=== PATIENT | female | born 1960 | race Caucasian/White ===

== ENCOUNTER 2018-02-03 00:40 | Inpatient (IN) | payer OTHER ==
[~2018-02-03] VITALS: Ht 165.1 cm; Wt 49.0 kg
--- NOTE | ~2018-02-03 | PR ---
[place], [place] PROGRESS NOTE NAME: ALVIN HERNANDEZ UNIT #: [id number] ROOM: 314 DOCTOR: PATRIA CORDERO DO BIRTHDATE: [birth year] DOS: 02/10/2018 CHIEF COMPLAINT: "I feel better." SUMMARY OF VISIT: The patient was seated in the dining area for the interview today. She smiled during our interaction this morning. She reports that her constipation is much less and that the Colace is working. MENTAL STATUS EXAMINATION: The patient is alert and oriented to person, place and time today. Her mood is improved, continuing toward euthymia. Her affect is appropriate today. The patient continues to eat a limited diet. There is suspicion that an eating disorder may be present. PLAN: We will renew Ativan and p.r.n. status. Continue with the current medication regimen, working toward discharge sometime next week with continued improvement. Continue to engage in individual and brown milieu activities and returning her to the least restrictive environment when psychiatrically stable. Patria Cordero DO ARGENIS BONE MD CM:PNTRANS [id number] PATRIA CORDERO DO 02/11/18 0035 interface
--- NOTE | ~2018-02-03 | WRIGHTHP ---
[place], [place] PATIENT HISTORY AND PHYSICAL EXAM NAME: ALVIN HERNANDEZ UNIT #: [id number] ROOM: 314 DOCTOR: ARGENIS BONE MD BIRTHDATE: [birth year] DOS: 02/03/2018 INITIAL PSYCHIATRIC EVALUATION. CHIEF COMPLAINT: "I'm just so depressed, I need help." HISTORY OF PRESENT ILLNESS: This is a 57-year-old white female who was sent here on an involuntary basis from [facility]. The patient had initially presented to , also known as [facility] with a chief complaint of feeling so depressed, she wanted to put a gun to her head and blow her brains out. The patient reports ongoing depressive symptoms for the last 3 weeks. 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 The patient apparently carries a diagnosis of schizoaffective disorder and the notes indicate at one point, she was on Invega. She is admitted now to rule out organic factors and to attempt to stabilize on medication, returning to the least restrictive environment when psychiatrically stable. PAST MEDICAL HISTORY: Remarkable for history of head injury, hyperlipidemia, irritable bowel syndrome, migraine headaches, sinus bradycardia, trigeminal neuralgia syndrome and a questionable history of schizophrenia. SOCIAL HISTORY: She does not smoke cigarettes, use illicit drugs or drink alcohol. ALLERGIES: She lists allergies to CARBAMAZEPINE and IBUPROFEN. STRENGTHS: Good verbal skills, willingness to receive help. WEAKNESSES: Poor coping skills and a poor support system. MENTAL STATUS: She is alert and oriented to person, place and time. She is somewhat of a bad historian and somewhat spotty at times. Mood does seem to be overwhelmingly depressed and her eyes swelled with tears. She did endorse multiple neurovegetative symptoms including fleeting suicidal thoughts. There is no binta or hypomania. I did not see the presence of any psychotic symptomatology. There were no overt auditory or visual hallucinations. No delusions, no paranoia. Short, intermediate, and long-term memory were fully intact. DIAGNOSIS: Major depression, recurrent, with psychotic features, rule out schizoaffective disorder. PLAN: I have already discontinued her Invega and melatonin in lieu of Remeron 15 mg at bedtime. We will monitor for the presence and absence of both depression as well as psychotic symptoms, engage in individual and brown milieu activity, returning to the least restrictive environment when psychiatrically stable. [place], [place] PATIENT HISTORY AND PHYSICAL EXAM NAME: ALVIN HERNANDEZ UNIT #: [id number] ROOM: [facility] DOCTOR: ARGENIS BONE MD BIRTHDATE: [birth year] ARGENIS BONE MD CM:HISPHYS:PATIENT HISTORY AND PHYSICAL EXAMINATION [phone] ARGENIS BONE MD 02/03/18 0919 interface
--- NOTE | ~2018-02-03 | DS ---
[place], [place] DISCHARGE SUMMARY NAME: [id number] UNIT #: [id number] ROOM: 314 DOCTOR: ARGENIS BONE MD BIRTHDATE: [birth year] DOS: 02/14/2018 CHIEF COMPLAINT: "I'm just so depressed, I need help." HISTORY OF PRESENT ILLNESS: This is a 57-year-old white female who was sent here on an involuntary basis from [facility]. The patient had initially presented to the Emergency Room, sent there from [facility] with a chief complaint of being so depressed that she wanted to put a gun to her head and blow her brains out. She reports ongoing depressive symptoms for the last 3 weeks. During this period of time, she endorsed poor sleep and appetite. She notes difficulty falling asleep, maintaining sleep and waking up early. She has had a significant weight loss with a poor appetite. She also has been having poor ADL maintenance with anergia, anhedonia, hopeless, helpless feelings, crying spells, and inability to cope. The patient most recently was on Invega, but it has not been effective. She carries a lengthy history of schizoaffective disorder. PAST MEDICAL HISTORY: Remarkable for head injury, hyperlipidemia, irritable bowel syndrome, migraine headaches, sinus bradycardia, trigeminal neuralgia and a history of schizoaffective disorder. SOCIAL HISTORY: She does not smoke cigarettes, use illicit drugs or drink alcohol. ALLERGIES: She lists allergies to CARBAMAZEPINE and IBUPROFEN. SUMMARY OF HOSPITAL COURSE: The patient was admitted to the unit where her Invega and melatonin were discontinued in lieu of Remeron 15 mg at bedtime. This did seem to help with depression somewhat, but she continued to complain of significant sleep and appetite issues. Zyprexa was initially added at 2.5 in the morning and 5 mg at night, but she found the 2.5 mg dose in the morning too sedative and caused her too much somnolence. Eventually, the morning dose of the Zyprexa was discontinued and she was maintained just on the Remeron and the Zyprexa at bedtime. This did improve her overall symptoms. She slept well, ate better. She became very bright and pleasant and engaging. She voiced positive plans for the future and was able to be discharged home on 02/14/2018. MENTAL STATUS AT DISCHARGE: She is alert and oriented. Mood does seem to be strongly trending towards euthymia. Affect is more appropriate. There is no binta, hypomania or psychosis. Short, intermediate, and long-term memory are intact. FINAL DIAGNOSES: Schizoaffective disorder. PLAN: All of her prescriptions have been printed. There are no acute medical issues confronting her as well as no acute psychiatric issues. Her biopsychosocial needs were adequately being met by the community at large. [place], [place] DISCHARGE SUMMARY NAME: ALVIN HERNANDEZ UNIT #: [id number] ROOM: [facility] DOCTOR: ARGENIS BONE MD BIRTHDATE: [birth year] ARGENIS BONE MD CM:DISCHARG [id number] ARGENIS BONE MD 02/14/18 2035 interface
--- NOTE | ~2018-02-03 | PR ---
[place], [place] PROGRESS NOTE NAME: ALVIN HERNANDEZ UNIT #: [id number] ROOM: 314 DOCTOR: SMILEY CARCAMO MD BIRTHDATE: [birth year] DOS: 02/13/2018 SUBJECTIVE: The patient was seen and spoke with the nursing staff. Per staff, the patient is doing well. No behavior problems or issues, taking her medication, slept well last night. The patient was pleasant and cooperative. She was in her room. She said that she is doing "okay." She said that her mood is better and she feels that the medication is helping her. She did not talk about any abdominal issues today, which she has been doing for the last 2 days. She seems to be not in any acute distress. MENTAL STATUS EXAMINATION: Pleasant and cooperative, alert and oriented to day, date, month and year. She described her mood as "okay." Affect was mood congruent and euthymic. Thought process goal directed. No flight of ideas or loosening of association. She denied auditory or visual hallucination. No delusion or paranoia noted. She denied suicidal ideation, intent or plan. She also denied any homicidal ideation, intent or plan. PLAN: 1. Continue current medication and care. 2. Continue redirection. 3. Supportive care. 4. Encourage activity in groups. SMILEY CARCAMO MD CM:PNTRANS [phone] SMILEY CARCAMO MD 02/14/18 0603 interface
--- NOTE | ~2018-02-03 | PR ---
[place], [place] PROGRESS NOTE NAME: ALVIN HERNANDEZ UNIT #: [id number] ROOM: 314 DOCTOR: SMILEY CARCAMO MD BIRTHDATE: [birth year] DOS: 02/06/2018 PSYCHIATRIC PROGRESS NOTE SUBJECTIVE: The patient seen and spoke with staff. Per staff, patient is very depressed, isolative, compliant with her medication. The patient was pleasant and cooperative, but reports being very depressed. She said that she is taking her medication regularly and did not have any side effect. She reported good sleep last night, but when I asked her about appetite, she did not answer my question. She was not in any distress. MENTAL STATUS EXAMINATION: Pleasant and cooperative. Described her mood as "down." Affect was flat, constricted. Thought process goal directed. No flight of ideas, loosening of association. She denied auditory or visual hallucination. No delusion or paranoia noted. She still had fleeting suicidal ideation, but no intent or plan. Denied any homicidal ideation, intent or plan. Insight and judgment was poor to fair. PLAN: 1. Continue current medication and care. 2. Increase activity and groups. 3. Continue 1:1 therapy, psychoeducation and coping skill. SMILYE CARCAMO MD CM:PNTRANS [id number] SMILEY CARCAMO MD 02/07/186 interface
--- NOTE | ~2018-02-03 | PR ---
[place], [place] PROGRESS NOTE NAME: ALVIN HERNANDEZ UNIT #: [id number] ROOM: 314 DOCTOR: PATRIA CORDERO DO BIRTHDATE: [birth year] DOS: 02/09/2018 SUMMARY OF THE VISIT: Initially, the patient was seated in the dining area at the table, sobbing. She wanted to speak alone, so the interview was moved into the quiet room. She readily engaged in conversation. She began attempting to explain a series of events that happened in the past, concerning her father, mother and stepmother. She then began to discuss with us her past history of taking Dexedrine as well as other nxuh-[id number]-[id number] weight loss preparations. She kept insisting that she did not take too many of them. She was once again redirected to the present circumstances. The patient was concerned about her dose of Zyprexa. She is unhappy that it is an antipsychotic medication. It was explained to her that is an adjunct medication to help her antidepressant work more effectively and more quickly. MENTAL STATUS EXAMINATION: The patient is alert and oriented. Her mood is very liable, overwhelmingly depressed. Her affect is flat. She appears extremely anxious. PLAN: We are discontinuing the morning dose of Zyprexa. We will renew the Ativan p.r.n. Otherwise, continue with current medication regimen. We will continue to engage in individual and brown milieu activity, returning to the least restrictive environment when psychiatrically stable. Patria Cordero DO ARGENIS BONE MD CM:PNAFTAB [id number] PATRIA CORDERO DO 02/10/18 0553 interface
--- NOTE | ~2018-02-03 | PR ---
[place], [place] PROGRESS NOTE NAME: ALVIN HERNANDEZ UNIT #: [id number] ROOM: 314 DOCTOR: SMILEY CARCAMO MD BIRTHDATE: [birth year] DOS: 02/12/2018 PSYCHIATRIC PROGRESS NOTE SUBJECTIVE: The patient seen and spoke with the staff. Per staff, the patient is doing better. No behavior problems or issues. Compliant with her medication. The patient was pleasant and cooperative. She was in her room on the bed. She said that her stomach is still hurting, but not as bad as before. She said that the current medication is helping her and she is doing much better mood-kingsley. She reports good sleep and appetite. MENTAL STATUS EXAMINATION: Pleasant, cooperative. Described her mood as "better." Affect, mood congruent. Thought process goal directed. No flight of ideas, loosening of association. She denied auditory or visual hallucination. No delusion or paranoia noted. She denied suicidal ideation, intent or plan. She also denied homicidal ideation, intent or plan. Insight and judgment was poor to fair. PLAN: 1. Continue current medication and care. 2. Continue redirection. 3. Encourage activities and groups. 4. Psychoeducation coping skill. SMILEY CARCAMO MD CM:PNTRANS [id number] SMILEY CARCAMO MD 02/13/18 1230 interface
--- NOTE | ~2018-02-03 | PR ---
[place], [place] PROGRESS NOTE NAME: ALVIN HERNANDEZ UNIT #: [id number] ROOM: 314 DOCTOR: SMILEY CARCAMO MD BIRTHDATE: [birth year] DOS: 02/05/2018 PSYCHIATRIC PROGRESS NOTE SUBJECTIVE: The patient is seen and spoke with the staff. Per staff, the patient is still depressed, refuses to leave the room at time, locked the door of the room this morning, but then came out. The patient was pleasant and cooperative. She was in the day area. She reports being depressed, also talked about poor sleep at night. She denied any side effect from the medication. She denied any thoughts of harming herself or anyone else. MENTAL STATUS EXAMINATION: The patient was pleasant and cooperative. She described her mood as "down." Affect was flat. Thought process was goal directed. No flight of ideas, loosening of association. She denied auditory or visual hallucination. No delusion or paranoia noted. She denied suicidal ideation, intent or plan. She also denied homicidal ideation, intent or plan. PLAN: 1. Continue current medication and care. We need to give some time for the medication to start its effect. 2. Encourage activities in groups. 3. Psychoeducation and coping skill. SMILEY CARCAMO MD CM:PNTRANS [phone] SMILEY CARCAMO MD 02/06/18 0353 interface
--- NOTE | ~2018-02-03 | PR ---
[place], [place] PROGRESS NOTE NAME: ALVIN HERNANDEZ UNIT #: [id number] ROOM: 314 DOCTOR: ARGENIS BONE MD BIRTHDATE: [birth year] DOS: 02/08/2018 INTERVAL NOTE CHIEF COMPLAINT: "I am so fearful, my mom is going to give my apartment away." SUMMARY OF THE VISIT: The patient was interviewed in the dining area where she had most of her breakfast eaten. She engaged readily in conversation. She discussed with me at length her fears that her mom was going to go into her apartment, give her belongings away and give her apartment away. When I had discussed this later with treatment team, staff did report to me that this is an ongoing delusion that she has not had any verbal or physical contact with her stepmom in over 20 years and family has relayed that when she does get psychotic, she has these irrational fears that this is going to happen. Staff also note that she has in general not been eating well and needs a lot of prompting to increase her caloric intake during the day. MENTAL STATUS: She is alert and oriented. Mood does seem to be still overwhelmingly depressed. Affect is somewhat flat and blunted. She is very fretful and anxious and grossly psychotic. Memory for the most part is intact. PLAN: I will go ahead and discontinue her Depakote that was just started yesterday in lieu of Zyprexa 2.5 mg in the morning and 5 mg at night. This will augment the effectiveness of the Remeron. It will also cut into the psychotic symptoms as well as stabilize her mood. We will engage in individual and brown milieu activity, returning to the least restrictive environment when psychiatrically stable. ARGENIS BONE MD CM:PNTRANS [id number] ARGENIS BONE MD 02/08/18 1248 interface
--- NOTE | ~2018-02-03 | PR ---
[place], [place] PROGRESS NOTE NAME: ALVIN HERNANDEZ UNIT #: [id number] ROOM: 314 DOCTOR: SMILEY CARCAMO MD BIRTHDATE: [birth year] DOS: 02/11/2018 PSYCHIATRIC PROGRESS NOTE SUBJECTIVE: The patient seen and spoke with the nursing staff. Per staff, the patient is doing better taking medication, now eating also, not as isolated as before. Reportedly, she is also attending groups. The patient was pleasant and cooperative. She was in her room on the bed. She said that she is doing good mood-kingsley. She also said that the medication is helping her, but talked about stomach ache. She did not express any other problems or concerns. MENTAL STATUS EXAMINATION: The patient was pleasant and cooperative. Described her mood as "better." Affect, mood congruent. Thought process goal directed. No flight of ideas, loosening of association. She denied auditory or visual hallucination. No delusion or paranoia noted. She denies suicidal ideation, intent or plan. She also denied any homicidal ideation, intent or plan. Insight and judgment was poor to fair. PLAN: 1. Continue current medications and care. 2. Continue redirection. 3. Supportive care. SMILEY CARCAMO MD CM:PNTRANS [phone] SMILEY CARCAMO MD 02/12/18 1725 interface
[2018-02-03] MEDS ORDERED: TOPAMAX15 M1 PO (01:00)
[2018-02-03] MEDS ORDERED: TOPAMAX200 MG PO (01:00)
[2018-02-03] MEDS ORDERED: NEURONTIN300 MG PO (01:02)
[2018-02-03] MEDS ORDERED: GLUCOPHAGE500 M1 PO (01:03)
[2018-02-03] MEDS ORDERED: INVEGA9 MG PO (01:04)
[2018-02-03] MEDS ORDERED: MELATONIN5 M1 PO (01:04)
[2018-02-03 02:10] VITALS: BP 138/88
[2018-02-03 02:17] VITALS: BP 138/88
[2018-02-03 08:18] VITALS: BP 131/83
[2018-02-03 08:38] LABS: BASO # 0.1 10*3/uL (0.0-0.1); EOS % 0.2 % (1.0-4.0); HEMATOCRIT 35.7 % (37.0-47.0); HEMOGLOBIN 12.4 g/dl (12.0-16.0); LYMPH # 1.1 10*3/uL (1.3-4.4); MEAN CELL VOLUME 89.5 fl (81.0-99.0); MEAN CORPUSCULAR HGB 31.1 pg (27.0-31.0); MEAN CORPUSCULAR HGB CONC 34.7 g/dl (33.0-37.0); MEAN PLATELET VOLUME 10.1 fl (9.6-12.3); MONO # 0.2 10*3/uL (0.1-1.0); MONO % 4.9 % (3.0-9.0); NEUT # 3.4 10*3/uL (2.3-7.9); NEUT % 70.7 % (47.0-73.0); PLATELET COUNT AUTOMATED 289 10*3/uL (130-400); RED BLOOD COUNT 3.99 10*6/uL (4.10-5.10); RED CELL DISTRI WIDTH 12.2 % (0-14.5); WHITE BLOOD COUNT 4.9 10*3/uL (4.8-10.8)
[2018-02-03 08:49] LABS: ALBUMIN 4.4 gm/dl (3.1-4.5); BUN 5 mg/dl (7-24); CHLORIDE 101 mmol/L (98-107); POTASSIUM 3.5 mmol/L (3.5-5.1); SODIUM 136 mmol/L (136-145)
[2018-02-03 09:01] LABS: ALKALINE PHOSPHATASE 65 U/L (45-117); CHOLESTEROL 190 mg/dL (<200); CREATININE 0.67 mg/dL (0.55-1.02); HDL CHOLESTEROL 71 mg/dl (40-60); LDL CHOLESTEROL 104 mg/dL (9-159); SGOT/AST 20 IU/L (3-35); SGPT/ALT 21 U/L (12-78); TOTAL PROTEIN 7.3 gm/dL (6.4-8.2); TRIGLYCERIDES 74 mg/dl (<150); VLDL CHOLESTEROL 15 mg/dL (6-40)
[2018-02-03 09:33] LABS: VITAMIN D, 25-HYDROXY 29.3 ng/mL (30-100)
[2018-02-03 15:35] LABS: BILIRUBIN NEGATIVE (NEGATIVE); BLOOD 1+ (NEGATIVE); CLARITY CLEAR (CLEAR); COLOR YELLOW (YELLOW); GLUCOSE NEGATIVE (NEGATIVE); KETONE 2+ (NEGATIVE); LEUKO ESTERASE NEGATIVE (NEGATIVE); NITRITE NEGATIVE (NEGATIVE); SPECIFIC GRAVITY 1.015 (1.005-1.030); UROBILINOGEN 0.2 E.U./dl (0.2-1.0)
[2018-02-03 15:38] LABS: BACTERIA 2+; WBC 0-2 wbc/hpf (0-5)
[2018-02-03 15:39] LABS: MUCOUS TRACE
[2018-02-03 20:43] VITALS: BP 135/75
[2018-02-04 07:36] VITALS: BP 126/88
[2018-02-04 20:52] VITALS: BP 128/78
[2018-02-05 08:36] VITALS: BP 126/76
[2018-02-05 20:00] VITALS: BP 120/77
[2018-02-06 07:35] VITALS: BP 118/69
[2018-02-06 19:59] VITALS: BP 115/70
[2018-02-07 08:00] VITALS: BP 115/73
[2018-02-07 20:33] VITALS: BP 96/65
[2018-02-08 07:56] VITALS: BP 123/65
[2018-02-08 19:49] VITALS: BP 126/82
[2018-02-09 07:46] VITALS: BP 125/84
[2018-02-09 19:43] VITALS: BP 112/72
[2018-02-10 07:38] VITALS: BP 117/79
[2018-02-10 20:00] VITALS: BP 143/66
[2018-02-11 07:39] VITALS: BP 143/79
[2018-02-11 20:06] VITALS: BP 140/68
[2018-02-12 07:48] VITALS: BP 131/73
[2018-02-12] MEDS ORDERED: BENTYL PO (11:32)
[2018-02-12 19:50] VITALS: BP 133/75
[2018-02-13 07:52] VITALS: BP 114/80
[2018-02-13 19:57] VITALS: BP 106/56
[2018-02-14 07:33] VITALS: BP 140/76
[2018-02-14] MEDS ORDERED: MIRTAZAPINE15 M2 PO (09:21)
[2018-02-14] MEDS ORDERED: OLANZAPINE5 MG PO (09:21)
[2018-02-14] MEDS ORDERED: Vitamin D PO (09:21)
== END 2018-02-14 15:20 | disposition home or self-care (01) | DRG 885 ==
LOC: 3N 00:40
PROVIDERS: Psychiatry & Neurology Psychiatry
DX: F25.1 Schizoaffective disorder, depressive type (principal); R45.851 Suicidal ideations; E87.1 Hypo-osmolality and hyponatremia; Z68.1 Body mass index [BMI] 19.9 or less, adult; R03.0 Elevated blood-pressure reading, without diagnosis of hypertension; F32.9 Major depressive disorder, single episode, unspecified; E78.5 Hyperlipidemia, unspecified; R35.0 Frequency of micturition; G43.909 Migraine, unspecified, not intractable, without status migrainosus; K58.9 Irritable bowel syndrome, unspecified; K59.04 Chronic idiopathic constipation; R63.6 Underweight; Z88.6 Allergy status to analgesic agent; Z88.8 Allergy status to other drugs, medicaments and biological substances; Z87.828 Personal history of other (healed) physical injury and trauma; Z98.51 Tubal ligation status; Z80.3 Family history of malignant neoplasm of breast; Z82.49 Family history of ischemic heart disease and other diseases of the circulatory system; Z79.84 Long term (current) use of oral hypoglycemic drugs; Z79.899 Other long term (current) drug therapy

== ENCOUNTER 2021-02-20 16:49 | Inpatient (IN) | payer OTHER ==
[~2021-02-20] VITALS: Ht 165.1 cm; Wt 59.0 kg
[~2021-02-20 16:49] MED LIST: BENTYL PO; GLUCOPHAGE500 M1 PO; INVEGA9 MG PO; MELATONIN5 M1 PO; MIRTAZAPINE15 M2 PO; NEURONTIN300 MG PO; OLANZAPINE5 MG PO; TOPAMAX15 M1 PO; TOPAMAX200 MG PO; Vitamin D PO
[2021-02-21] MEDS ORDERED: TOPIRAMATE25 M3 PO (02:17)
[2021-02-21] MEDS ORDERED: RISPERIDONE M-TA2 MG PO (02:19)
[2021-02-21] MEDS ORDERED: RISPERIDONE M-TA1 MG PO (02:20)
[2021-02-21] MEDS ORDERED: RISPERDAL CONST25 MG IM (02:26)
[2021-02-21] MEDS ORDERED: MULTIPLE VITAM1 EAC1 PO (02:27)
[2021-02-21] MEDS ORDERED: GLYCOLAX119 GM PO (02:28)
[2021-02-21] MEDS ORDERED: DONEPEZIL HYDROC5 MG PO (02:30)
[2021-02-21] MEDS ORDERED: DEPAKOTE SPRIN125 MG PO (02:38)
[2021-02-21] MEDS ORDERED: DEPAKOTE DR500 MG PO (02:40)
[2021-02-21 15:43] LABS: BILIRUBIN Negative (Negative); BLOOD Trace-Lysed (Negative); CLARITY Clear (Clear); COLOR Yellow (Yellow); GLUCOSE Negative (Negative); KETONE Negative (Negative); LEUKO ESTERASE Negative (Negative); NITRITE Negative (Negative); SPECIFIC GRAVITY <= 1.005 (1.001-1.030); UROBILINOGEN 0.2 E.U./dl (0.0-1.0)
[2021-02-21 16:21] LABS: EPITHELIAL CELLS 0-2; RBC 0-2 rbc/hpf (0-2)
[2021-02-21 20:00] VITALS: BP 136/69
[2021-02-22 06:41] LABS: BASO # 0.1 10*3/uL (0.0-0.1); BASO % 1.2 % (0.0-1.0); EOS # 0.1 10*3/uL (0.0-0.4); EOS % 1.7 % (1.0-4.0); HEMATOCRIT 36.2 % (37.0-47.0); LYMPH # 1.2 10*3/uL (1.3-4.4); LYMPH % 29.4 % (27.0-41.0); MEAN CELL VOLUME 91.9 fl (81.0-99.0); MEAN CORPUSCULAR HGB 30.2 pg (27.0-31.0); MEAN CORPUSCULAR HGB CONC 32.9 g/dl (33.0-37.0); MEAN PLATELET VOLUME 9.5 fl (9.6-12.3); MONO # 0.3 10*3/uL (0.1-1.0); MONO % 7.6 % (3.0-9.0); NEUT # 2.5 10*3/uL (2.3-7.9); NEUT % 59.9 % (47.0-73.0); PLATELET COUNT AUTOMATED 299 10*3/uL (130-400); RED BLOOD COUNT 3.94 10*6/uL (4.10-5.10); RED CELL DISTRI WIDTH 12.3 % (0-14.5); WHITE BLOOD COUNT 4.2 10*3/uL (4.8-10.8)
[2021-02-22 06:57] LABS: ALBUMIN 3.6 gm/dl (3.1-4.5); BUN 16 mg/dl (7-24); CHLORIDE 102 mmol/L (98-107); CHOLESTEROL 220 mg/dL (<200); CREATININE 0.64 mg/dL (0.55-1.02); LDL CHOLESTEROL 136 mg/dL (9-159); POTASSIUM 4.2 mmol/L (3.5-5.1); SGOT/AST 18 IU/L (3-35); SGPT/ALT 25 U/L (12-78); SODIUM 135 mmol/L (136-145); TOTAL PROTEIN 7.1 gm/dL (6.4-8.2); TRIGLYCERIDES 68 mg/dl (<150)
[2021-02-22 07:05] LABS: ALKALINE PHOSPHATASE 90 U/L (45-117)
[2021-02-22 07:20] VITALS: BP 140/76
[2021-02-22 10:48] LABS: VITAMIN D, 25-HYDROXY 24.2 ng/mL (30-100)
[2021-02-22 20:00] VITALS: BP 128/61
[2021-02-23 07:48] VITALS: BP 106/60
[2021-02-23 20:00] VITALS: BP 128/80
[2021-02-24 08:00] VITALS: BP 128/60
[2021-02-24 20:00] VITALS: BP 129/67
[2021-02-25 07:02] VITALS: BP 114/78
[2021-02-25 19:33] VITALS: BP 128/72
[2021-02-26 07:12] VITALS: BP 122/72
[2021-02-26 20:00] VITALS: BP 142/75
[2021-02-27 07:23] VITALS: BP 126/60
[2021-02-27 20:00] VITALS: BP 140/66
[2021-02-28 07:16] VITALS: BP 138/66
[2021-02-28 19:04] VITALS: BP 129/64
[2021-03-01 07:48] VITALS: BP 125/69
[2021-03-01 20:00] VITALS: BP 136/55
[2021-03-02 07:24] VITALS: BP 130/68
[2021-03-02 20:00] VITALS: BP 130/72
[2021-03-03 08:00] VITALS: BP 119/64
[2021-03-03] MEDS ORDERED: TOPAMAX100 M1 PO ×2 (08:41→09:37)
[2021-03-03] MEDS ORDERED: VITAMIN D3125 MCG PO (08:42)
[2021-03-03] MEDS ORDERED: INVEGA SUSTENN234 MG IM (09:37)
[2021-03-03] MEDS ORDERED: MIRTAZAPINE15 M2 PO (09:37)
[2021-03-03] MEDS ORDERED: VITAMIN D3125 MC1 PO (09:37)
== END 2021-03-03 13:08 | DRG 750 ==
LOC: 3N 16:49
PROVIDERS: ADMIT Psychiatry & Neurology Psychiatry; ATTEND Psychiatry & Neurology Psychiatry
DX: F25.9 Schizoaffective disorder, unspecified (principal); F41.1 Generalized anxiety disorder; G43.909 Migraine, unspecified, not intractable, without status migrainosus; E78.2 Mixed hyperlipidemia; K59.09 Other constipation; G44.89 Other headache syndrome; Z20.822 Contact with and (suspected) exposure to COVID-19; M47.816 Spondylosis without myelopathy or radiculopathy, lumbar region; E11.9 Type 2 diabetes mellitus without complications; G89.29 Other chronic pain; M54.9 Dorsalgia, unspecified; E55.9 Vitamin D deficiency, unspecified; Z88.6 Allergy status to analgesic agent; Z88.8 Allergy status to other drugs, medicaments and biological substances; F33.1 Major depressive disorder, recurrent, moderate

== ENCOUNTER 2021-05-20 15:55 | Inpatient (IN) | payer OTHER ==
[~2021-05-20] VITALS: Ht 162.5 cm; Wt 62.1 kg
[~2021-05-20 15:55] MED LIST changes: +DEPAKOTE DR500 MG PO; +DEPAKOTE SPRIN125 MG PO; +DONEPEZIL HYDROC5 MG PO; +GLYCOLAX119 GM PO; +INVEGA SUSTENN234 MG IM; +MULTIPLE VITAM1 EAC1 PO; +RISPERDAL CONST25 MG IM; +RISPERIDONE M-TA1 MG PO; +RISPERIDONE M-TA2 MG PO; +TOPAMAX100 M1 PO; +TOPIRAMATE25 M3 PO; +VITAMIN D3125 MC1 PO; +VITAMIN D3125 MCG PO
[2021-05-20 18:51] LABS: BILIRUBIN Negative (Negative); BLOOD Trace-Lysed (Negative); CLARITY Clear (Clear); COLOR Yellow (Yellow); GLUCOSE Negative (Negative); KETONE Negative (Negative); LEUKO ESTERASE Negative (Negative); NITRITE Negative (Negative); PH 7.5 (4.5-8.0); SPECIFIC GRAVITY <= 1.005 (1.001-1.030); UROBILINOGEN 0.2 E.U./dl (0.0-1.0)
[2021-05-20 19:04] VITALS: BP 153/85
[2021-05-20 19:08] LABS: WBC 0-2 wbc/hpf (0-5)
[2021-05-21 06:35] LABS: BASO % 1.1 % (0.0-1.0); EOS # 0.1 10*3/uL (0.0-0.4); EOS % 1.6 % (1.0-4.0); HEMATOCRIT 40.6 % (37.0-47.0); LYMPH # 1.4 10*3/uL (1.3-4.4); LYMPH % 35.6 % (27.0-41.0); MEAN CELL VOLUME 88.3 fl (81.0-99.0); MEAN CORPUSCULAR HGB 29.8 pg (27.0-31.0); MEAN CORPUSCULAR HGB CONC 33.7 g/dl (33.0-37.0); MEAN PLATELET VOLUME 9.6 fl (9.6-12.3); MONO # 0.3 10*3/uL (0.1-1.0); MONO % 7.1 % (3.0-9.0); NEUT # 2.1 10*3/uL (2.3-7.9); NEUT % 54.3 % (47.0-73.0); PLATELET COUNT AUTOMATED 327 10*3/uL (130-400); RED CELL DISTRI WIDTH 11.9 % (0-14.5); WHITE BLOOD COUNT 3.8 10*3/uL (4.8-10.8)
[2021-05-21 06:50] LABS: ALBUMIN 4.1 gm/dl (3.1-4.5); ALKALINE PHOSPHATASE 90 U/L (45-117); BUN 4 mg/dl (7-24); CHLORIDE 103 mmol/L (98-107); CHOLESTEROL 205 mg/dL (<200); CREATININE 0.59 mg/dL (0.55-1.02); POTASSIUM 3.4 mmol/L (3.5-5.1); SGOT/AST 19 IU/L (3-35); SGPT/ALT 29 U/L (12-78); SODIUM 137 mmol/L (136-145); TOTAL PROTEIN 7.6 gm/dL (6.4-8.2); TRIGLYCERIDES 77 mg/dl (<150)
[2021-05-21 06:55] LABS: LDL CHOLESTEROL 112 mg/dL (9-159)
[2021-05-21 09:50] VITALS: BP 154/82
[2021-05-21 20:00] VITALS: BP 123/74
[2021-05-22 08:05] VITALS: BP 139/90
[2021-05-22 20:51] VITALS: BP 133/73
[2021-05-23 08:00] VITALS: BP 142/79
[2021-05-23 19:20] VITALS: BP 157/75
[2021-05-24 08:00] VITALS: BP 155/73
[2021-05-24 20:00] VITALS: BP 137/77
[2021-05-25 07:56] VITALS: BP 115/65
[2021-05-25 20:00] VITALS: BP 128/74
[2021-05-26 08:00] VITALS: BP 124/71
[2021-05-26 20:00] VITALS: BP 138/80
[2021-05-27 07:50] VITALS: BP 128/65
[2021-05-27 20:56] VITALS: BP 122/66
[2021-05-28 07:55] VITALS: BP 132/72
[2021-05-28] MEDS ORDERED: INVEGA SUSTENN234 MG IM (09:25)
[2021-05-28] MEDS ORDERED: FLUVOXAMINE50 MG PO ×2 (09:25)
[2021-05-28] MEDS ORDERED: ROZEREM8 MG PO (09:25)
[2021-05-28] MEDS ORDERED: COLACE100 MG PO (09:55)
[2021-05-28] MEDS ORDERED: TRIHEXYPHENIDYL2 M3 PO (10:14)
== END 2021-05-28 22:54 | DRG 750 ==
LOC: 3N 15:55
PROVIDERS: ADMIT Psychiatry & Neurology Psychiatry; ATTEND Psychiatry & Neurology Psychiatry
DX: F25.0 Schizoaffective disorder, bipolar type (principal); F51.01 Primary insomnia; F51.04 Psychophysiologic insomnia; K59.09 Other constipation; F41.1 Generalized anxiety disorder; F33.1 Major depressive disorder, recurrent, moderate; G44.209 Tension-type headache, unspecified, not intractable; E11.9 Type 2 diabetes mellitus without complications; Z88.6 Allergy status to analgesic agent; Z88.8 Allergy status to other drugs, medicaments and biological substances; Z20.822 Contact with and (suspected) exposure to COVID-19

== ENCOUNTER 2021-09-15 17:13 | Inpatient (IN) | payer OTHER ==
[~2021-09-15] VITALS: Ht 160 cm; Wt 52.2 kg
[~2021-09-15 17:13] MED LIST changes: +COLACE100 MG PO; +FLUVOXAMINE50 MG PO; +ROZEREM8 MG PO; +TRIHEXYPHENIDYL2 M3 PO
[2021-09-15 17:33] VITALS: BP 131/79
[2021-09-15 18:29] LABS: BASO % 1.1 % (0.0-1.0); EOS % 1.1 % (1.0-4.0); HEMATOCRIT 39.5 % (37.0-47.0); LYMPH # 1.4 10*3/uL (1.3-4.4); LYMPH % 37.3 % (27.0-41.0); MEAN CELL VOLUME 88.2 fl (81.0-99.0); MEAN CORPUSCULAR HGB 30.1 pg (27.0-31.0); MEAN CORPUSCULAR HGB CONC 34.2 g/dl (33.0-37.0); MEAN PLATELET VOLUME 9.4 fl (9.6-12.3); MONO # 0.2 10*3/uL (0.1-1.0); MONO % 5.1 % (3.0-9.0); NEUT # 2.1 10*3/uL (2.3-7.9); NEUT % 55.4 % (47.0-73.0); PLATELET COUNT AUTOMATED 305 10*3/uL (130-400); RED BLOOD COUNT 4.48 10*6/uL (4.10-5.10); RED CELL DISTRI WIDTH 12.2 % (0-14.5); WHITE BLOOD COUNT 3.7 10*3/uL (4.8-10.8)
[2021-09-15 18:48] LABS: ACETAMINOPHEN (TYLENOL) < 5.0 ug/ml (10-30); ALKALINE PHOSPHATASE 87 U/L (45-117); BUN 3 mg/dl (7-24); CHLORIDE 100 mmol/L (98-107); ETHYL ALCOHOL < 3.0 mg/dl (<3); POTASSIUM 3.6 mmol/L (3.5-5.1); SGOT/AST 20 IU/L (3-35); SGPT/ALT 25 U/L (12-78); SODIUM 134 mmol/L (136-145); TOTAL PROTEIN 7.2 gm/dL (6.4-8.2)
[2021-09-15 20:36] LABS: BILIRUBIN Negative (Negative); BLOOD Trace-Lysed (Negative); CLARITY Clear (Clear); COLOR Yellow (Yellow); GLUCOSE Negative (Negative); KETONE Trace (Negative); LEUKO ESTERASE Negative (Negative); NITRITE Negative (Negative); PH 5.5 (4.5-8.0); UROBILINOGEN 0.2 E.U./dl (0.0-1.0)
[2021-09-15 20:44] LABS: URINE AMPHETAMINES < 1000 (1000ng/ml); URINE BARBITURATES < 200 (200ng/ml); URINE BENZODIAZEPINES < 200 (200ng/ml); URINE CANNABINOIDS (THC) < 50 (50ng/ml); URINE COCAINE < 300 (300ng/ml); URINE METHADONE < 300 (300ng/ml); URINE OPIATES < 300 (300ng/ml); URINE PHENCYCLIDINE < 25 (25ng/ml)
[2021-09-15 20:55] LABS: BACTERIA TRACE
[2021-09-15 21:04] VITALS: BP 130/71
[2021-09-15 22:25] VITALS: BP 145/56
[2021-09-16] MEDS ORDERED: ATIVAN1 MG PO (00:54)
[2021-09-16 06:55] LABS: ALKALINE PHOSPHATASE 95 U/L (45-117); BUN 5 mg/dl (7-24); CHLORIDE 101 mmol/L (98-107); CHOLESTEROL 219 mg/dL (<200); CREATININE 0.65 mg/dL (0.55-1.02); LDL CHOLESTEROL 130 mg/dL (9-159); POTASSIUM 3.4 mmol/L (3.5-5.1); SGOT/AST 17 IU/L (3-35); SGPT/ALT 24 U/L (12-78); SODIUM 135 mmol/L (136-145); TRIGLYCERIDES 68 mg/dl (<150)
[2021-09-16] MEDS ORDERED: RISPERIDONE M-0.5 MG PO (07:59)
[2021-09-16] MEDS ORDERED: MILK OF MA400 MG/5 M PO (08:01)
[2021-09-16 08:17] VITALS: BP 123/92
[2021-09-16 20:00] VITALS: BP 123/92
[2021-09-17 07:41] VITALS: BP 128/77
[2021-09-17 08:30] VITALS: BP 128/77
[2021-09-17 20:00] VITALS: BP 144/76
[2021-09-18 08:00] VITALS: BP 124/65
[2021-09-18 20:00] VITALS: BP 154/76
[2021-09-19 08:00] VITALS: BP 136/71
[2021-09-19 20:00] VITALS: BP 104/60
[2021-09-20 08:00] VITALS: BP 115/70
[2021-09-20 20:00] VITALS: BP 101/75
[2021-09-21 06:39] VITALS: BP 111/60
[2021-09-21 20:00] VITALS: BP 108/72
[2021-09-22 07:43] VITALS: BP 113/52
[2021-09-22 20:00] VITALS: BP 136/70
[2021-09-23 08:23] VITALS: BP 103/60
[2021-09-23 20:00] VITALS: BP 119/89
[2021-09-24 07:52] VITALS: BP 150/88
[2021-09-24] MEDS ORDERED: INVEGA SUSTENN234 MG IM (09:46)
[2021-09-24] MEDS ORDERED: LORAZEPAM1 MG PO (09:46)
[2021-09-24] MEDS ORDERED: AMITRIPTYLINE50 MG PO (09:46)
== END 2021-09-24 12:40 | DRG 750 ==
LOC: ED 17:13 → 3N 21:22 → EDHOLD 21:22 → 3N 21:59
PROVIDERS: Physician Assistant; ADMIT Psychiatry & Neurology Psychiatry; ATTEND Psychiatry & Neurology Psychiatry
DX: F25.0 Schizoaffective disorder, bipolar type (principal); F33.2 Major depressive disorder, recurrent severe without psychotic features; F50.9 Eating disorder, unspecified; E87.1 Hypo-osmolality and hyponatremia; K58.9 Irritable bowel syndrome, unspecified; Z20.822 Contact with and (suspected) exposure to COVID-19; K59.04 Chronic idiopathic constipation; E80.6 Other disorders of bilirubin metabolism; E78.5 Hyperlipidemia, unspecified; G43.909 Migraine, unspecified, not intractable, without status migrainosus; F41.9 Anxiety disorder, unspecified; R03.0 Elevated blood-pressure reading, without diagnosis of hypertension; F42.9 Obsessive-compulsive disorder, unspecified; Z88.6 Allergy status to analgesic agent; Z88.8 Allergy status to other drugs, medicaments and biological substances; Z80.3 Family history of malignant neoplasm of breast; Z82.49 Family history of ischemic heart disease and other diseases of the circulatory system